=== PATIENT | male | born 1965 | race Caucasian/White ===

== ENCOUNTER 2022-11-07 09:42 | Emergency (ER) | payer OTHER ==
[2022-11-07 09:54] VITALS: RESP 18; TEMP 97
[2022-11-07] MEDS ORDERED: predniSONE 50 MG TAB PO STA (10:16)
[2022-11-07] MEDS ORDERED: HYDROmorphone 1 MG/ML 1 ML SYRINGE IM STA (10:16)
[2022-11-07] MEDS ORDERED: KETOROLAC 15 MG/ML 1 ML VIAL IM STA (10:16)
--- NOTE | 2022-11-07 10:19 | ED ---
General Adult HPI - General Chief complaint: Back Pain/Injury Stated complaint: back pain Time Seen by Provider: 11/07/22 10:05 Source: patient, RN notes reviewed, old records reviewed Mode of arrival: wheelchair Limitations: no limitations - History of Present Illness Initial comments: This a 57-year-old male who presents emergency Department with a complaint of lower back pain that radiates down his left leg per patient states diagnosis sciatica however the medications his doctor gave him has not worked. Patient states she's never had an MRI of the area. Patient states he has a job which entails a lot of heavy lifting on occasion. Patient doesn't recall particular incident of injury. Patient denies numbness or weakness chest pain with move ment of that leg. Patient states today felt like he was actually having some lower back spasms. Patient's been given Flexeril Neurontin but he stopped taking the Flexeril. He states he was also taken some Aleve. Patient denies any injury or trauma. Patient denies any urinary incontinence or retention. Patient denies any perineum numbness. Patient denies any fever chills - Related Data Previous Rx's Medication Instructions Recorded Cyclobenzaprine [Flexeril] 10 mg PO TID #20 tab 11/07/22 predniSONE [Deltasone] 40 mg PO DAILY #8 tab 11/07/22 Allergies Allergy/AdvReac Type Severity Reaction Status Date / Time No Known Allergies Allergy Verified 11/07/22 09:55 Review of Systems ROS Statement: Those systems with pertinent positive or pertinent negative responses have been documented in the HPI. ROS Other: All systems not noted in ROS Statement are negative. General Exam - General Exam Comments Initial Comments: GENERAL: Patient is well-developed and well-nourished. Patient is nontoxic and well- hydrated and is in moderate distress. ENT: Neck is soft and supple. No significant lymphadenopathy is noted. Oropharynx is clear. Moist mucous membranes. Neck has full range of motion without eliciting any pain. EYES: The sclera were anicteric and conjunctiva were pink and moist. Extraocular movements were intact and pupils were equal round and reactive to light. Eyelids were unremarkable. PULMONARY: Unlabored respirations. Good breath sounds bilaterally. No audible rales rhonchi or wheezing was noted. CARDIOVASCULAR: There is a regular rate and rhythm without any murmurs gallops or rubs. ABDOMEN: Soft and nontender with normal bowel sounds. SKIN: Skin is clear with no lesions or rashes and otherwise unremarkable. NEUROLOGIC: Patient is alert and oriented x3. Cranial nerves II through XII are grossly intact. Motor and sensory are also intact. Normal speech, volume and content. Symmetrical smile. Patient's straight leg test was positive on the left at about 30 and when the right leg was lifted to about 60 it causes a little bit of pain on the left. Perineum was normal sensation MUSCULOSKELETAL: Normal extremities with adequate strength and full range of motion. LYMPHATICS: No significant lymphadenopathy is noted PSYCHIATRIC: Normal psychiatric evaluation. Limitations: no limitations Course Vital Signs 11/07/22 09:50 Temperature 97.0 F L Pulse Rate 96 Respiratory 18 Rate Blood Pressure 174/110 O2 Sat by Pulse 97 Oximetry Medical Decision Making - Medical Decision Making Was pt. sent in by a medical professional or institution? @ -No Did you speak to anyone other than the patient for history? @ -White gave some history of previous problems with the had forgot about Did you review nursing and triage notes? @ -Agree with nursing notes Were old charts reviewed? @ -No Differential Diagnosis? @ -Differential Back Pain: Strain, zoster, cauda equina syndrome, epidural abscess, vertebral osteomyelitis, discitis, fracture, subluxation, disc herniation, DJD, spinal stenosis, dissection, AAA, pancreatitis, peptic ulcer disease, pyelonephritis, kidney stone, this is not meant to be an all-inclusive list. EKG interpreted by me (3pts min.)? @ -No X-rays interpreted by me (1pt min.)? @ -Lumbosacral spine x-ray was interpreted by myself. X-ray showed no acute abnormality. CT interpreted by me (1pt min.)? @ -None U/S interpreted by me (1pt. min.)? @ -None What testing was considered but not performed? (CT, X-rays, U/S, labs)? Why? @ -Known What meds were considered but not given? Why? @ -None Did you discuss the management of the patient with other professionals? @ -No Did you reconcile home meds? @ -No Was smoking cessation discussed for >3mins.? @ -No Was critical care preformed (if so, how long)? @ -No Were there social determinants of health that impacted care today? How? (Homelessness, low income, unemployed, alcoholism, drug addiction, transportation, low edu. Level, literacy, decrease access to med. care, senior care, rehab)? @ -No Was there de-escalation of care discussed even if they declined? (Discuss DNR or withdrawal of care, Hospice)? @ -No What co-morbidities impacted this encounter? (DM, HTN, Smoking, COPD, CAD, Cancer, CVA, Hep., AIDS, mental health diagnosis, sleep apnea, morbid obesity)? @ -No Was patient admitted / discharged? @ -Patient presented with clinical symptoms for sciatica. X-rays did not show any acute abnormality. Patient was medicated with Dilaudid Toradol and prednisone. Patient was feeling considerably better on discharge. Patient will be discharged home with prednisone and Flexeril Undiagnosed new problem with uncertain prognosis? @ -No Drug Therapy requiring intensive monitoring for toxicity (Heparin, Nitro, Insulin, Cardizem)? @ -Known Were any procedures done? @ -No Diagnosis/symptom? @ -Sciatica Acute, or Chronic, or Acute on Chronic? @ -Acute Uncomplicated (without systemic symptoms) or Complicated (systemic symptoms)? @ -Uncomplicated Side effects of treatment? @ -No Exacerbation, Progression, or Severe Exacerbation] @ -No Poses a threat to life or bodily function? @ -No Disposition Clinical Impression: Sciatica Disposition: HOME SELF-CARE Condition: Good Instructions (If sedation given, give patient instructions): Sciatica (ED) Prescriptions: predniSONE [Deltasone] 40 mg PO DAILY #8 tab Cyclobenzaprine [Flexeril] 10 mg PO TID #20 tab Is patient prescribed a controlled substance at d/c from ED?: No Referrals: Hannah Littlejohn MD [Primary Care Provider] - 1-2 days Time of Disposition: 11:02
--- NOTE | 2022-11-07 10:42 | XR ---
EXAMINATION TYPE: XR lumbosacral spine min 4V DATE OF EXAM: 11/07/2022 10:27 AM INDICATION: Patient age:Male; 57 years old; Reason for study: Back pain with radiation; COMPARISON: None TECHNIQUE: Frontal, lateral , bilateral oblique and coned in L5-S1 lateral views of the spine. FINDINGS: No evidence of any acute osseous pathology. No evidence of loss of vertebral body height i s seen. There is normal alignment of the lumbar vertebral bodies. Mild scattered disc space narrowing . Multilevel marginal osteophyte formation throughout the visualized spine. There is facet joint arth ropathy throughout the spine. Scattered at least mild neural foraminal stenosis. IMPRESSION: 1. No acute fracture. 2. Mild multilevel disc degeneration.
[2022-11-07 11:20] VITALS: BP 136/84; PULSE 87
== END 2022-11-07 11:20 | disposition home or self-care (01) ==
LOC: EC 09:42
DX: M54.32 Sciatica, left side (principal)
CPT/HCPCS: 72110; 99283; 96372 ×2; J1170; J1885; J7512